=== PATIENT | female | born 1940 | race African-American/Black ===

== ENCOUNTER 2023-01-25 20:30 | Emergency (ER) | payer MEDICARE, OTHER ==
[~2023-01-25] VITALS: Ht 157.5 cm; Wt 47.6 kg
[2023-01-25] MEDS ORDERED: THIAMINE HCL 100 MG TABLET PO ONE (21:00)
[2023-01-25] MEDS ORDERED: IV NORMAL SALINE 1000 ML BAG IV ONE (21:00)
[2023-01-25] MEDS ORDERED: THIAMINE HCL 100 MG TABLET ONE (21:10)
[2023-01-25 21:27] LABS: BASOPHILS % (AUTO) 0.8 % (0.0-2.0); DIFFERENTIAL COMMENT 1; EOSINOPHILS # (AUTO) 0.1 K/uL (0.0-0.7); EOSINOPHILS % (AUTO) 2.7 % (0.0-7.0); HEMATOCRIT 35.5 % (31.2-41.9); HEMOGLOBIN 11.7 g/dL (10.9-14.3); LYMPHOCYTES # (AUTO) 1.2 K/uL (0.8-4.8); LYMPHOCYTES % (AUTO) 25.6 % (20.5-51.5); MEAN CORPUSCULAR HEMOGLOBIN 34.5 uug (24.7-32.8); MEAN CORPUSCULAR HGB CONC 33 g/dL (32.3-35.6); MEAN CORPUSCULAR VOLUME 105.1 fL (75.5-95.3); MONOCYTES # (AUTO) 0.5 K/uL (0.1-1.30); MONOCYTES % (AUTO) 10.4 % (0.0-11.0); NEUTROPHILS # (AUTO) 2.8 K/uL (1.8-8.9); NEUTROPHILS % (AUTO) 60.5 % (38.5-71.5); PLATELET COUNT (AUTO) 147 K/uL (179-408); RED BLOOD CELL COUNT(AUTO) 3.38 MIL/uL (3.63-4.92); RED CELL DISTRIBUTION WIDTH 13.3 % (12.3-17.7); WHITE BLOOD COUNT (AUTO) 4.7 K/uL (3.8-11.8)
[2023-01-25 21:36] LABS: CALCIUM 9.3 mg/dL (8.5-10.1); CARBON DIOXIDE 23 mmol/L (21-32); CHLORIDE 102 mmol/L (98-107); CREATININE 2.3 mg/dL (0.6-1.3); GLUCOSE 102 mg/dL (74-106); SODIUM SERUM 139 mmol/L (136-145); UREA NITROGEN, BLOOD 38 mg/dL (7-18)
[2023-01-25 21:37] LABS: AMMONIA 12 umol/L (11-32)
[2023-01-25 21:40] LABS: ETHANOL 25 MG/DL (0-10)
[2023-01-25 21:45] LABS: ALANINE AMINOTRANSFERASE 10 U/L (14-59); ALBUMIN 3.4 g/dL (3.4-5.0); ALKALINE PHOSPHATASE 76 U/L (50-136); ASPARTATE AMINOTRANSFERASE 19 U/L (15-37); BILIRUBIN,DIRECT 0.1 mg/dL (0.0-0.2); BILIRUBIN,TOTAL 0.3 mg/dL (0.2-1.0); TOTAL PROTEIN, SERUM 6.8 g/dL (6.4-8.2)
[2023-01-25 21:47] LABS: LACTIC ACID 2.8 mmol/L (0.4-2.0)
[2023-01-25] MEDS ORDERED: NIFE-35 PO (22:40)
[2023-01-25] MEDS ORDERED: OLME40TA12 PO (22:40)
[2023-01-25] MEDS ORDERED: ATEN25TA PO (22:40)
[2023-01-25] MEDS ORDERED: MEMA10TA PO (22:40)
[2023-01-25] MEDS ORDERED: ALBU6.7H9 IH (22:40)
[2023-01-25] MEDS ORDERED: MULT-594 PO (22:40)
[2023-01-25] MEDS ORDERED: FURO20TA4 PO (22:40)
[2023-01-25] MEDS ORDERED: CHOL500062 PO (22:40)
[2023-01-25] MEDS ORDERED: TAMO20TA4 PO (22:40)
[2023-01-25] MEDS ORDERED: SIMV10TA98 PO (22:40)
[2023-01-25] MEDS ORDERED: APIX5TAB PO (22:40)
[2023-01-25 22:56] LABS: *BILIRUBIN,URIN NEGATIVE (NEGATIVE); *CLARITY,URINE SLIGHTLY CLOUDY (CLEAR); *COLOR,URINE YELLOW (YELLOW); *KETONES,URINE NEGATIVE (NEGATIVE); *PROTEIN,URINE NEGATIVE (NEGATIVE); *UROBILINOGEN,URINE 0.2 E.U./dl (NORMAL); LEUKOCYTE ESTERASE ,URINE 3+ (NEGATIVE); NITRITE, URINE NEGATIVE (NEGATIVE); UGLUCOSE NEGATIVE (NEGATIVE)
[2023-01-25 23:00] LABS: *BLOOD, URINE TRACE (NEGATIVE)
[2023-01-25 23:10] LABS: BACTERIA,URINE MODERATE /HPF (NONE SEEN); SQUAMOUS EPITHELIAL CELL,UR MANY /HPF (NONE SEEN); WBC,URINE 80-100 /HPF (0-3)
[2023-01-25] MEDS ORDERED: CYANOCOBALAMIN 1000 MCG/ML VIAL IM ONE (23:15)
[2023-01-25] MEDS ORDERED: CEFTRIAXONE 1 G in IV DEXTROSE 5% 50 ML IV ONE (23:15)
[2023-01-25] MEDS ORDERED: SULF1TAB48 PO (23:30)
[2023-01-25] MEDS ORDERED: CEFTRIAXONE /D5W 50ML IVPB **ER PYXIS IV ONE (23:50)
[2023-01-25] MEDS ORDERED: CYANOCOBALAMIN 1000 MCG/ML VIAL ONE (23:51)
[2023-01-26 02:27] VITALS: BP 110/57; TEMP 97.9; O2SAT 97
== END 2023-01-26 00:30 | disposition home or self-care (01) ==
LOC: ER 20:32
DX: I95.9 Hypotension, unspecified (principal); N39.0 Urinary tract infection, site not specified; E53.8 Deficiency of other specified B group vitamins; Z88.0 Allergy status to penicillin; Z79.899 Other long term (current) drug therapy
CPT/HCPCS: 80076; 80048; 81001; 82140; 82607; 85025; 85730; 84484; 36415; 93005; 71045; 99285; 96361; 96365; 96372; 83605 ×2; 87040; 80320; J0696; J3420; J7040 ×2; A4663; G0480

== ENCOUNTER 2023-05-09 19:22 | Emergency (ER) | payer MEDICARE ==
[~2023-05-09] VITALS: Ht 157.5 cm; Wt 49.9 kg
[~2023-05-09 19:22] MED LIST: ALBU6.7H9 IH; APIX5TAB PO; ATEN25TA PO; CHOL500062 PO; FURO20TA4 PO; MEMA10TA PO; MULT-594 PO; NIFE-35 PO; OLME40TA12 PO; SIMV10TA98 PO; SULF1TAB48 PO; TAMO20TA4 PO
[2023-05-09] MEDS ORDERED: ALBUTEROL SULFATE 2.5 MG/3 ML NEBU NEB ONE ×2 (19:45)
[2023-05-09] MEDS ORDERED: IV NORMAL SALINE 500 ML BAG IV ONE (19:45)
[2023-05-09 20:20] LABS: BASOPHILS % (AUTO) 0.2 % (0.0-2.0); DIFFERENTIAL COMMENT 0; HEMATOCRIT 34.4 % (31.2-41.9); HEMOGLOBIN 11.3 g/dL (10.9-14.3); LYMPHOCYTES # (AUTO) 0.8 K/uL (0.8-4.8); MEAN CORPUSCULAR HEMOGLOBIN 35.7 uug (24.7-32.8); MEAN CORPUSCULAR HGB CONC 33 g/dL (32.3-35.6); MEAN CORPUSCULAR VOLUME 108.9 fL (75.5-95.3); MONOCYTES # (AUTO) 0.9 K/uL (0.1-1.30); NEUTROPHILS # (AUTO) 3.4 K/uL (1.8-8.9); NEUTROPHILS % (AUTO) 65.6 % (38.5-71.5); PLATELET COUNT (AUTO) 157 K/uL (179-408); RED BLOOD CELL COUNT(AUTO) 3.16 MIL/uL (3.63-4.92); RED CELL DISTRIBUTION WIDTH 13.7 % (12.3-17.7); WHITE BLOOD COUNT (AUTO) 5.1 K/uL (3.8-11.8)
[2023-05-09 20:24] LABS: CARBON DIOXIDE 19 mmol/L (21-32); CHLORIDE 110 mmol/L (98-107); CREATININE 2.4 mg/dL (0.6-1.3); GLUCOSE 184 mg/dL (74-106); LYMPHOCYTES % (AUTO) 20.2 % (20.5-51.5); POTASSIUM 4.1 mmol/L (3.5-5.1); SODIUM SERUM 149 mmol/L (136-145); UREA NITROGEN, BLOOD 47 mg/dL (7-18)
[2023-05-09 20:25] LABS: CALCIUM 9.1 mg/dL (8.5-10.1)
[2023-05-09 20:37] LABS: ALANINE AMINOTRANSFERASE 14 U/L (14-59); ALKALINE PHOSPHATASE 104 U/L (50-136); ASPARTATE AMINOTRANSFERASE 26 U/L (15-37); BILIRUBIN,DIRECT 0.1 mg/dL (0.0-0.2); BILIRUBIN,TOTAL 0.5 mg/dL (0.2-1.0); NT-PRO BNP 5317 pg/mL (0-125); TOTAL PROTEIN, SERUM 7.5 g/dL (6.4-8.2)
[2023-05-09] MEDS ORDERED: IPRATROPIUM BROMIDE 0.5 MG/2.5 ML NEBU ONE (20:39)
[2023-05-09] MEDS ORDERED: ALBUTEROL SULFATE 2.5 MG/3 ML NEBU ONE (20:39)
[2023-05-09 20:40] VITALS: O2SAT 96
[2023-05-09 20:55] VITALS: O2SAT 99
[2023-05-09] MEDS ORDERED: IPRATROPIUM BROMIDE 0.5 MG/2.5 ML NEBU NEB ONE (21:00)
[2023-05-09] MEDS ORDERED: LIDOCAINE 2%-EPI 1:100,000 20 ML VIAL IJ ONE (21:45)
[2023-05-09 22:20] LABS: C-REACTIVE PROTEIN 21.61 mg/dL (0.00-0.30)
[2023-05-10 03:03] VITALS: O2SAT 95
== END 2023-05-10 03:50 | disposition short-term general hospital (02) ==
LOC: ER 19:25
DX: U07.1 COVID-19 (principal); R53.1 Weakness; J44.9 Chronic obstructive pulmonary disease, unspecified; Z79.899 Other long term (current) drug therapy; Z88.0 Allergy status to penicillin
CPT/HCPCS: 99285; 71045; 87426; 87804 ×2; 80076; 80048; 82550; 82728; 83880; 83615; 83735; 85025; 86140; 87040; 84484; 36415; 94640; 83605; J7040; A4606; A4663; J3590